=== PATIENT | female | born 1995 | race Hispanic/Latino ===

== ENCOUNTER 2024-09-09 19:00 | Inpatient (IN) | payer OTHER ==
[~2024-09-09 19:00] MED LIST: Bupivacaine 0.25% HCL 30 ML VIAL ONE; Bupivacaine HCl 0.5%/Epinephrine 1:200,000/PF 30 ml Vial ONE; ePHEDrine Sulfate 50 MG/10 ML VIAL ONE
[2024-09-09 21:17] VITALS: BMI 39.4
[2024-09-09] MEDS ORDERED: Misoprostol 200 MCG TAB PR PRN (21:51)
[2024-09-09] MEDS ORDERED: Ibuprofen 800 MG TAB PO PRN (21:51)
[2024-09-09] MEDS ORDERED: Methylergonovine 0.2 MG/ML VIAL IM PRN (21:51)
[2024-09-09] MEDS ORDERED: Promethazine HCl 25 MG/ML VIAL IM PRN (21:51)
[2024-09-09] MEDS ORDERED: Carboprost 250 MCG/ML AMP IM PRN (21:51)
[2024-09-09] MEDS ORDERED: Docusate 100 MG CAP PO PRN (21:51)
[2024-09-09] MEDS ORDERED: Tranexamic Acid 1,000 MG/10 ML VIAL IVP PRN (21:51)
[2024-09-09] MEDS ORDERED: Diphenoxylate HCl/Atropine Tablet PO PRN ×2 (21:51)
[2024-09-09] MEDS ORDERED: Acetaminophen 500 MG TAB PO PRN (21:51)
[2024-09-09] MEDS ORDERED: hydrALAZINE 20 MG/ML VIAL SLOW IVP PRN (21:51)
[2024-09-09] MEDS ORDERED: Lidocaine 1% (PF) 30 ML VIAL SC PRN (21:51)
[2024-09-09] MEDS ORDERED: Oxytocin 30 units/NS 500 ML 500 ML IV SCH ×2 (22:00)
[2024-09-09 22:23] LABS: Hematocrit 33.5 % (34.9-44.5); Hemoglobin 11.7 g/dL (12.0-15.5); Mean Corpuscular HGB CONC 34.9 g/dL (32.0-36.0); Mean Corpuscular Hemoglobin 30.4 pg (27.0-33.0); Mean Platelet Volume 10.5 fL (7.4-10.4); Platelet Count 203 10x3/uL (150-450); RBC Distribution Width 12.4 % (11.5-14.5); Red Blood Cell (RBC) Count 3.85 10x6/uL (3.90-5.03); White Blood Cell (WBC) Count 10.9 10x3/uL (3.5-10.5)
[2024-09-09 22:52] LABS: HBsAg Index 0.19 S/CO (0-0.99); Hep B Surf Ag - L&D Non-Reactive S/CO (NonReactive)
[2024-09-09] MEDS: Misoprostol 100 MCG TAB VAG SCH (23:07)
[2024-09-09] MEDS: Penicillin G Potassium 5 MILL.UNITS in Sodium Chloride 0.9% 100 ML IVPB SCH (23:08)
[2024-09-09] MEDS: Lactated Ringer's 1,000 ML IV SCH (23:08)
[2024-09-09 23:36] LABS: Syphilis Antibody Index 6.33 S/CO (<1.00 Non-Reactive)
[2024-09-10 00:47] LABS: Syphilis Antibody INDETERMINATE (Nonreactive); Syphilis Titer Non-Reactive Titer (Negative)
[2024-09-10] MEDS: Penicillin G 2.5 MILL.units 2.5 MILL.UNITS in Premix 1 BAG IVPB SCH (03:03)
[2024-09-10] MEDS: fentaNYL 50 mcg/mL 1 mL Vial SLOW IVP SCH (13:09)
[2024-09-10] MEDS: fentaNYL/Ropivacaine Epidural 100 ML ONE (14:52)
[2024-09-10] MEDS: Ondansetron PF 4 MG/2 ML Vial IVP PRN (15:42)
[2024-09-10] MEDS ORDERED: diphenhydrAMINE 50 MG/ML VIAL IVP PRN (16:52)
[2024-09-10] MEDS ORDERED: Naloxone HCl 0.4 mg/ml Vial IVP PRN ×2 (16:52)
[2024-09-10] MEDS ORDERED: Lactated Ringer's 500 ML IV PRN (16:52)
[2024-09-10] MEDS ORDERED: Ondansetron PF 4 MG/2 ML Vial IVP PRN (16:52)
[2024-09-10] MEDS ORDERED: Promethazine HCl 25 MG/ML VIAL IM PRN (16:52)
[2024-09-10] MEDS ORDERED: Moisturizing Cream (Eucerin) 113 GM JAR TOP PRN (16:52)
[2024-09-10] MEDS ORDERED: Communication Order-Pharmacy FS SCH (17:00)
[2024-09-10] MEDS ORDERED: fentaNYL 2 mcg/Ropivacaine 0.2% Epidural 100 ML CADD EPIDURAL SCH (17:00)
[2024-09-10] MEDS: Oxytocin 30 units/NS 500 ML 500 ML IV SCH (17:38)
[2024-09-10] MEDS: ePHEDrine Sulfate 50 MG/10 ML VIAL SLOW IVP PRN (19:11)
[2024-09-11] MEDS ORDERED: Preparation H Ointment 28 GM TUBE PR PRN (00:45)
[2024-09-11] MEDS ORDERED: Bisacodyl 10 MG SUPP PR PRN (00:45)
[2024-09-11] MEDS ORDERED: Benzocaine-Menthol 82.5 ML CAN TOP PRN (00:45)
[2024-09-11] MEDS ORDERED: diphenhydrAMINE 25 MG CAP PO PRN (00:45)
[2024-09-11] MEDS ORDERED: Milk Of Magnesia 30 ML UDCUP PO PRN (00:45)
[2024-09-11] MEDS ORDERED: hydrALAZINE 20 MG/ML VIAL SLOW IVP PRN (00:45)
[2024-09-11] MEDS: Ibuprofen 800 MG TAB PO SCH (01:10)
[2024-09-11] MEDS: Acetaminophen 325 MG TAB PO PRN (01:10)
[2024-09-11] MEDS: PHENYLEPHRINE-NS 100 MCG/ML 10 ML SYRINGE ONE (03:06)
[2024-09-11] MEDS: fentaNYL 50 mcg/mL 1 mL Vial ONE (03:06)
[2024-09-11] MEDS: Boostrix 0.5 ML (Tdap) VIAL (>/=7 yrs of age) IM ONE (03:09)
[2024-09-11] MEDS: Ferrous Sulfate 325 MG TAB PO SCH (08:00)
[2024-09-11] MEDS: Docusate 100 MG CAP PO SCH (08:43)
[2024-09-12 08:03] VITALS: BP 101/62; TEMP 98.1
[2024-09-12 10:21] LABS: #Basophils 0.03 10x3/uL (0.0-0.2); #Eosinophils 0.31 10x3/uL (0.0-0.5); #Monocytes 0.79 10x3/uL (0.0-1.1); #Neutrophils 7.37 10x3/uL (1.5-8.4); %Basophils 0.3 % (0.0-2.0); %Eosinophils 2.7 % (0.0-6.0); %Lymphocytes 26.4 % (18.0-47.0); %Monocytes 6.8 % (0.0-10.0); %Neutrophils 63.1 % (40.0-75.0); Hematocrit 34.6 % (34.9-44.5); Hemoglobin 11.2 g/dL (12.0-15.5); Mean Corpuscular HGB CONC 32.4 g/dL (32.0-36.0); Mean Corpuscular Hemoglobin 29.2 pg (27.0-33.0); Mean Corpuscular Volume 90.1 fL (81.6-98.3); Mean Platelet Volume 10.5 fL (7.4-10.4); Platelet Count 187 10x3/uL (150-450); RBC Distribution Width 12.9 % (11.5-14.5); Red Blood Cell (RBC) Count 3.84 10x6/uL (3.90-5.03); White Blood Cell (WBC) Count 11.7 10x3/uL (3.5-10.5)
[2024-09-12 10:32] LABS: ALT (SGPT) 12 U/L (8-55); AST (SGOT) 16 U/L (5-34); Albumin 2.4 g/dL (3.5-5.0); Alkaline Phosphatase 97 U/L (40-110); Anion Gap 13 mmol/L (10-20); BUN (Urea Nitrogen) 11 mg/dL (7.0-18.7); Bilirubin, Total 0.2 mg/dL (0.2-1.2); Calc. Creatinine Clearance 231 mL/min (70-130); Calcium 8.4 mg/dL (7.8-10.44); Carbon Dioxide 20 mmol/L (22-29); Chloride 108 mmol/L (98-107); Estimated GFR 125; Globulin 3.7 g/dL (2.4-3.5); Glucose 116 mg/dL (70-105); Potassium 3.9 mmol/L (3.5-5.1); Protein, Total 6.1 g/dL (6.0-8.3); Sodium 137 mmol/L (136-145)
[2024-09-12 13:14] LABS: Creatinine, Urine 89.59 mg/dL (47-110)
== END 2024-09-12 19:50 | disposition home or self-care (01) | DRG 807 ==
LOC: CSHLD 21:07 → CSHPP 09-11 02:24
PROVIDERS: ADMIT Emergency Medicine; ATTEND Emergency Medicine
PROC: 10H07YZ Insertion of Other Device into Products of Conception, Via Natural or Artificial Opening (ICD-10-PCS; principal; 2024-09-10)
PROC: 10907ZC Drainage of Amniotic Fluid, Therapeutic from Products of Conception, Via Natural or Artificial Opening (ICD-10-PCS; 2024-09-10)
PROC: 10E0XZZ Delivery of Products of Conception, External Approach (ICD-10-PCS; 2024-09-11)
DX: O99.824 Streptococcus B carrier state complicating childbirth (principal); Z37.0 Single live birth; Z79.82 Long term (current) use of aspirin; O99.214 Obesity complicating childbirth; O76 Abnormality in fetal heart rate and rhythm complicating labor and delivery; Z3A.39 39 weeks gestation of pregnancy; O13.4 Gestational [pregnancy-induced] hypertension without significant proteinuria, complicating childbirth
CPT/HCPCS: 36415; 80053; 82570; 84156; 85025; 85027; 86593; 86780; 86850; 86900; 86901; 87340; J0665; J2405; J2540; J2590; J3010; J7120